=== PATIENT | female | born 1970 | race Caucasian/White ===

== ENCOUNTER 2021-04-02 21:30 | Emergency (ER) | payer BC ==
[~2021-04-02 21:30] MED LIST: AUGMENTIN 875-1 EACH PO; LORTAB 7.5-3251 EACH PO
[2021-04-02 22:33] LABS: HEMOGLOBIN 14.2 gm/dl (12.3-15.3); RED BLOOD COUNT 4.74 M/UL (4.00-5.10); WHITE BLOOD COUNT 13.5 K/UL (4.5-11.0)
[2021-04-02 22:53] LABS: BUN/CREATININE RATIO 16 (0-10)
== END 2021-04-03 00:45 | disposition home or self-care (01) ==
LOC: ER1 21:30
PROVIDERS: Emergency Medicine
DX: K56.609 Unspecified intestinal obstruction, unspecified as to partial versus complete obstruction (principal); Z88.1 Allergy status to other antibiotic agents; Z20.822 Contact with and (suspected) exposure to COVID-19
CPT/HCPCS: 80053; 83690; 85025; 96374; 96375; 99284; J2270; J2405; Q9967; U0002

== ENCOUNTER → 2021-11-18 | Outpatient (CLI) | payer BC | LOC: CT 12:16 | DX: C20 Malignant neoplasm of rectum (principal); K43.9 Ventral hernia without obstruction or gangrene | CPT/HCPCS: 71260; Q9967 ==